=== PATIENT | female | born 1975 | race Caucasian/White ===

== ENCOUNTER 2017-02-25 15:14 | Emergency (ER) | payer SELFPAY ==
[~2017-02-25] VITALS: Ht 170.2 cm; Wt 74.8 kg
[2017-02-25 17:46] VITALS: BP 101/62
== END 2017-02-25 17:47 | disposition home or self-care (01) ==
LOC: ED 15:14
DX: R55 Syncope and collapse (principal); R42 Dizziness and giddiness; R61 Generalized hyperhidrosis
CPT/HCPCS: J7030